=== PATIENT | female | born 1970 | race Asian ===

== ENCOUNTER 2018-09-24 06:55 | Outpatient (CLI) | payer OTHER ==
--- NOTE | 2018-09-24 10:36 | ULT ---
PELVIC ULTRASOUND: Date: 09/24/18 INDICATION: Dysmenorrhea in 47-year-old female. FINDINGS: Transabdominal and endovaginal exam of pelvis performed. Uterus is enlarged and heterogeneous. There is a heterogeneous mass extending from the uterine fundus measuring 4-5 cm, consistent with a large fibroid. 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 Endometrium is prominent in both horns, measuring 1.1 cm on the left and 1.7 cm on the right. There are complex cystic structures in the left adnexa which appea r to arise from the left ovary. A large, partially septated cystic mass measures 5-6 cm. An adjacent smaller septated cystic mass measures 4-5 cm. Color Doppler and spectral analysis does show blood arie w to this presumed left ovary. The right ovary is not identified. No free fluid seen. IMPRESSION: 1. Evidence of bicornuate uterus with thickened endometrium as noted above. 2. Enlarged heterogeneous uterus. Evident of a large fibroid from the uterine fundus. 3. Two partially septated cystic masses from the left adnexa, presumably left ovarian. 4. The right ovary is not identified. Pelvic MRI is suggested for improved evaluation of the uterus and ovaries. POS: OFF
== END 2018-09-24 06:56 | disposition home or self-care (01) ==
LOC: BICULT 06:55
PROVIDERS: ATTEND Family Medicine
DX: N92.0 Excessive and frequent menstruation with regular cycle (principal); D25.9 Leiomyoma of uterus, unspecified; N85.2 Hypertrophy of uterus; Q51.3 Bicornate uterus; N83.8 Other noninflammatory disorders of ovary, fallopian tube and broad ligament
CPT/HCPCS: 76856

== ENCOUNTER 2018-12-16 08:24 | Outpatient (CLI) | payer OTHER ==
[2018-12-16] MEDS ORDERED: Gadobenate Dimeglumine 529 MG/1 ML (20ML VIAL) ONE (09:00)
--- NOTE | 2018-12-16 10:47 | MRI ---
MRI Pelvis W WO Con History: Q51.3, D25.9, N94.6 Comparison: Ultrasound September 24, 2018 Findings: The left adnexa there is a mildly complex mass which is predominantly cystic with 2 interna l septations. These internal septations and no significant enhancement. At the posterior portion of this mass extending to the craniad margin is a proteinaceous cyst. Overall this cystic mass measures 3.7 x 4.4 x 4.8 cm. Very subtle area of enhancement on the craniad lateral component of the cystic mass. There is pulsati on artifact extending throughout this mass due to the face including direction in the AP direction. There is normal right ovarian follicle. There is a component of tethering and scarring of the cul-de- sac. The endometrial thickness measures 1 cm.. Few endometrial cysts. Arcuate appearance of the uterus in the fundal myometrium is a subserosal 4.1 cm fibroid and on the right myometrium is a 2.3 cm intramural fibroid. Numerous nabothian cysts of the cervix. No free fluid in the pelvis. No adenopathy. Impression: 1. Complex solid and cystic mass along the left adnexa abutting the ovary with imaging features of en dometrioma and concern for abnormal papillary enhancement within the craniad margin of the kidney seen with early malignancy such as endometrioid carcinoma. [facility] consultation advised. The size of this mass has not improved from the prior pelvic ultrasound September 24, 2018. 2. Scar within the cul-de-sac suggesting chronic endometriosis. 3. Numerous nabothian cysts of the cervix. 4. Arcuate uterus with large fundal fibroids. 5. Small cysts of the endometrial cavity concerning for hyperplasia.
== END 2018-12-16 08:25 | disposition home or self-care (01) ==
LOC: SCSMRI 08:24
PROVIDERS: ATTEND Family Medicine
DX: N94.6 Dysmenorrhea, unspecified (principal); D25.9 Leiomyoma of uterus, unspecified; Q51.3 Bicornate uterus; L90.5 Scar conditions and fibrosis of skin; N88.8 Other specified noninflammatory disorders of cervix uteri; N83.8 Other noninflammatory disorders of ovary, fallopian tube and broad ligament
CPT/HCPCS: 72197; A9577

== ENCOUNTER 2020-01-08 08:02 | Outpatient (CLI) | payer OTHER ==
--- NOTE | 2020-01-08 09:11 | MRI ---
MRI cervical spine noncontrast: 01/08/2020 HISTORY: 49-year-old female with cervicalgia radiating to bilateral shoulders. ICD-10: "M 50.20, other cervical disc displacement, unspecified cervical region" COMPARISON: None FINDINGS: Smoothly well-circumscribed approximately 1.5 x 1 x 1 cm nodule in mid pole of right lobe of thyroid gland with homogeneously hyperintense signal on T1 WI, homogeneously hyperintense signal on T2 WI, and intermediate signal on STIR. Vertebral body heights are maintained. Normal bone marrow signal. Cervical spinal cord is normal in s ize and signal. Mild anterior disc space narrowing at C2-3. No high-grade disc space narrowing at any level. No high-grade facet DJD at any level. No high-grade central spinal canal stenosis at any l evel. Shallow, broad-based disc protrusions and/or disc-osteophyte complexes indent the ventral aspect of t he thecal sac at C3-4, C4-5, and C5-6, without causing significant central spinal canal stenosis. At C6-7, moderate sized left uncinate process osteophytes cause moderate to severe stenosis of the pr oximal aspect of left neural foramen At C5-6, moderate size right uncinate process osteophytes cause mild to moderate right neural foramin al stenosis. IMPRESSION: 1. Mild cervical spondylosis. 2. High-grade Left neural foraminal stenosis at C6-7. 3. Lower grade right neural foraminal stenosis at C5-6. 4. No high-grade central spinal canal stenosis at any level.
== END 2020-01-08 08:03 | disposition home or self-care (01) ==
LOC: SCSMRI 08:02
PROVIDERS: ATTEND Nurse Practitioner Acute Care
DX: M50.20 Other cervical disc displacement, unspecified cervical region (principal); M47.812 Spondylosis without myelopathy or radiculopathy, cervical region; M48.02 Spinal stenosis, cervical region
CPT/HCPCS: 72141